=== PATIENT | female | born 1960 | race Caucasian/White ===

== ENCOUNTER → 2017-07-13 | Outpatient (CLI) | payer OTHER ==
--- NOTE | 2017-07-14 09:14 | VAS ---
HISTORY: Localized right lower extremity pain and edema Study: Right lower extremity venous Doppler Comparison: None TECHNIQUE: Multiple goodman scale as well as spectral and color flow Doppler images of the deep venous system were obtained of the right lower extremity. FINDINGS: The deep venous system of the right lower extremity was evaluated from the level of the common femora l vein through the popliteal vein. Normal color flow and augmentation can be observed. In addition, normal compression is seen throughout the deep venous system. IMPRESSION: Negative for DVT. Reported By:
== END ==
LOC: RAD 15:46
PROVIDERS: ATTEND Nurse Practitioner Family
DX: R60.0 Localized edema (principal)
CPT/HCPCS: 93971

== ENCOUNTER → 2017-08-23 | Outpatient (CLI) | payer OTHER ==
--- NOTE | 2017-08-23 13:28 | MRI ---
HISTORY: Intervertebral disc disease, chronic low back pain Study: MRI lumbar spine without contrast Comparison: Lumbar radiographs performed on 05/28/2012 Technique: Multiplanar multi-sequence MRI of the lumbar spine was obtained. Sagittal T1, sagittal T2 , and stir weighted images, axial T1, and axial T2 images were obtained. Findings: For dictation purposes and description of lumbar levels, there appear to be 6 non rib-bearing lumbar type vertebrae, with L6 being a transitional type vertebra. The patient is status post L5-L6 posterio r interbody fusion. There is grade 1 anterolisthesis of L5 on L6. Vertebral body height is maintained throughout. No acute or chronic compression fracture is visualized. Incidental note is made of a racheal ign hemangioma within the L1 vertebral body. Multilevel disc desiccation is noted. There is mild loss of disc space height at the L1-L2 and L5-L6 levels. Mild degenerative endplate changes are noted ant eriorly at a few levels within the lumbar spine. There is no suspicious bone marrow edema. The conus terminates at the L2 superior endplate. Evaluation of the pre and paravertebral soft tissues is unrem arkable. T12 -- L1: The T12-L1 level is unremarkable. L1 -- L2: At the L1-L2 level there is mild broad-based disc ridging without significant canal stenosi s or neuroforaminal compromise. A small annular fissure is noted at this level. L2 -- L3: At the L2-L3 level there is mild broad-based disc ridging and mild facet hypertrophy, resul ting no significant canal stenosis or neuroforaminal compromise. An annular fissure is noted at this level as well. L3 -- L4: At the L3-L4 level there is facet hypertrophy minimal disc ridging, resulting in very mild neuroforaminal compromise on the right but no significant canal stenosis. A small annular fissure is noted at this level. L4 -- L5: At the L4-L5 level there is facet remodeling/hypertrophy, resulting in very mild bilateral neuroforaminal compromise but no significant canal stenosis. L5 -- L6: At the L5-L6 level there is facet remodeling/hypertrophy which, along with listhesis at thi s level, is resulting in [id number] neuroforaminal compromise on the right and mild neuroforami nal compromise on the left but no significant canal stenosis. L6 -- S1: At the L6-S1 level there is mild facet hypertrophy without canal stenosis or neuroforaminal compromise. IMPRESSION: 1. Multilevel mild degenerative disc disease and mild facet arthropathy, most significant at the L5-L 6 level, where there is [id number] neuroforaminal compromise on the right and mild neuroforamin al compromise on the left. 2. Multilevel small annular fissures 3. Status post L5-L6 posterior interbody fusion. Reported By:
== END ==
LOC: RAD 10:10
PROVIDERS: ATTEND Internal Medicine
DX: M51.36 Other intervertebral disc degeneration, lumbar region (principal)
CPT/HCPCS: 72148

== ENCOUNTER → 2017-11-11 | Outpatient (CLI) | payer OTHER ==
[2017-11-11 15:50] LABS: BILIRUBIN,URINE NEGATIVE (NEGATIVE); BLOOD/HEMOGLOBIN,URINE NEGATIVE (NEGATIVE); GLUCOSE, URINE NEGATIVE (NEGATIVE); KETONES,URINE NEGATIVE (NEGATIVE); LEUKOCYTE ESTERASE ,URINE 1+ (NEGATIVE); NITRITES,URINE NEGATIVE (NEGATIVE); PROTEIN,URINE 1+ (NEGATIVE); UROBILINOGEN,URINE NORMAL (NORMAL)
[2017-11-11 15:53] LABS: APPEARANCE,URINE CLEAR (CLEAR); COLOR,URINE YELLOW (YELLOW)
[2017-11-11 15:55] LABS: RBC,URINE NONE SEEN /HPF (NONE SEEN)
[2017-11-11 15:56] LABS: BACTERIA,URINE NEGATIVE /HPF (NEGATIVE); HYALINE CASTS, URINE MANY /LPF (NEGATIVE); SQUAMOUS EPITHELIAL CELL,UR RARE /HPF (NEGATIVE)
== END ==
LOC: LAB 15:22
PROVIDERS: ATTEND Orthopaedic Surgery
DX: N39.0 Urinary tract infection, site not specified (principal)
CPT/HCPCS: 81001; 87086